=== PATIENT | male | born 1955 | race Caucasian/White ===

== ENCOUNTER 2021-03-26 07:37 | Outpatient (CLI) | payer MEDICARE, OTHER, SELFPAY ==
--- NOTE | ~2021-03-26 | US_ITS ---
EXAMINATION: US aorta [facility] DATE: 03/26/2021 08:24 INDICATION: Abdominal aortic aneurysm screening with risk factors of hypertension, hypercholesterolem ia and prior smoking. TECHNIQUE: Grayscale, color Doppler, and pulsed Doppler images of the aorta and common iliac arteries were obtained. COMPARISON: None. FINDINGS: The proximal aorta measures 2.5 cm. The mid aorta measures 2.3 x 2.1 cm. The distal aorta measures 2. 1 x 1.9 cm. The right common iliac artery measures 1.1 cm. The left common iliac artery measures 1.3 cm. IMPRESSION: 1. Normal caliber abdominal aorta. Reviewed, dictated and finalized at location A.
== END 2021-03-26 07:38 | disposition home or self-care (01) ==
PROVIDERS: PCP Internal Medicine; Visit Provider Clinical Nurse Specialist
DX: Z13.6 Encounter for screening for cardiovascular disorders (principal)
CPT/HCPCS: 76706

== ENCOUNTER 2021-04-19 11:00 | Outpatient (RCR) | payer MEDICARE, OTHER, SELFPAY ==
--- NOTE | 2021-02-01 14:32 | PTOPEVAL ---
Thank you for referring Shawn Thakur to [facility].? The patient is scheduled to be seen for therapy? 1 x/week for 6 weeks. Please review, sign, date and return this plan of care CINTHIA. I agree with and certify that the following plan of care is medically necessary. Referring Physician Date Attending Provider: Milton Woo DO Problem Diagnosis shoulder pain Onset February 2020 Additional Evaluation Detail Send 06/19 by Orthopedic doctor- Dr. Cotton-- nothing torn. no injection Subjective Information Reports pain with lifting left Query Text:As Reported By Patient/ shoulder in int.rot position. Family Only slight discomfort with reaching behind back. He his shoulder started hurting when he was performing more push-up and core exercises. He has decreased his fitness routine and cardio activities to walking and chores. The pain will wake him at night if sleeping on left shoulder. He tends to favor the left UE with lifting task. Pain Assessment Timing of Pain Assessment Timing of Pain Assessment Assessment Pain Scale Pain Scale Used Numeric (1 - 10) Self Report Pain Assessment Left Shoulder(s) Reported Pain Level 3 Pain Description Aching Lowest Pain Intensity 0 Greatest Pain Intensity 3 Pain Aggravating Factors Exercise/Activity,Lifting, Prolonged Position Pain Behaviors None Pain Score Pain Score 3: Self Report Interventions Used Interventions Used By Clinicians Education,Exercise Upper Extremity Range of Motion Scapular/ Shoulder Range of Motion Right Shoulder Flexion - Active 170 Shoulder Extension - Active 60 Shoulder Abduction - Active 175 Shoulder Medial Rotation - Active T10 Query Text:Reach Behind the Back Shoulder Lateral Rotation - Active T2 Query Text:Reach Behind the Head Left Shoulder Flexion - Active 170 Shoulder Extension - Active 60 Shoulder Abduction - Active 175 Shoulder Lateral Rotation - Active T6 Query Text:Reach Behind the Head Scapular/Shoulder Range of Motion T2 Comments Upper Extremity Muscle Strength Testing General Upper Extremity Strength Gross Upper Extremity Strength Comments 5/5 ciara shoulder motion except ciara shoulder flex 4+/5, no pain with testing
--- NOTE | 2021-03-08 14:39 | PTOPEVAL ---
Thank you for referring Shawn Thakur to [facility].? The patient is scheduled to be seen for therapy? 1 visit every other week. Please review, sign, date and return this plan of care CINTHIA. I agree with and certify that the following plan of care is medically necessary. Referring Physician Date Attending Provider: Milton Woo, DO Physical Therapy Progress Note Diagnosis shoulder pain Onset February 2020 Additional Evaluation Detail Send 06/19 by Orthopedic doctor- Dr. Cotton-- nothing torn. no injection Subjective Information Reports the pain was better, Query Text:As Reported By Patient/ but he tweeked it yesterday. Family He will at times have no pain . Overhead motion cont to be painful. Pain with pushing motion from the ground level. Denies pain or problems with reaching behind his back. The pain cont to wake him at night. Pain Assessment Self Report Pain Assessment Left Shoulder(s) Reported Pain Level 0 Pain Description Sharp Pain Frequency Chronic,Intermittent Lowest Pain Intensity 0 Greatest Pain Intensity 3 Pain Aggravating Factors Exercise/Activity,Lifting Upper Extremity Range of Motion Scapular/ Shoulder Range of Motion Right Shoulder Flexion - Active 170 Shoulder Extension - Active 60 Shoulder Abduction - Active 175 Shoulder Medial Rotation - Active T10:Reach Behind the Back Shoulder Lateral Rotation - Active T2:Reach Behind the Head Left Shoulder Flexion - Active 170 Shoulder Extension - Active 60 Shoulder Abduction - Active 175 Shoulder Lateral Rotation - Active T6:Reach Behind the Head Scapular/Shoulder Range of Motion T2 Comments Upper Extremity Muscle Strength Testing General Upper Extremity Strength Gross Upper Extremity Strength Comments 5/5 ciara shoulder motion, no pain with testing ciara middle trap: 3/5 ciara lower trap 2+/5 serratus ant: 3-/5 Muscle Length Testing Muscle Length Testing Pectoralis Major- Sternal Fibers Muscle (R) Mild Tightness,(L) Mild Length Tightness Pectoralis Major- Clavicular Fibers (R) Moderate Tightness,(L) Muscle Length Moderate Tightness Pectoralis Minor Muscle Length (R) Severe Tightness,(L) Severe Tightness Palpation Assessment Palpation Palpation tenderness of left bicep tendon at bicepital groove.
--- NOTE | 2021-04-19 11:43 | PTOPEVAL ---
Physical Therapy Progress Note/Discharge Note Thank you for referring Shawn Thakur to [facility] Shawn has attended 8 therapy visits from 02/01/21 - 04/19/21 to address left shoulder limitations. He demonstrates improved shoulder motion without pain, improved UE strength and ability to return to normal activities. He has achieved his therapy goals at this time. Will DC skilled therapy services at this time. Please review, sign, date and return this discharge summary CINTHIA. I agree with and certify that the following plan of care is medically necessary. Referring Physician Date Attending Provider: Milton Woo DO Problem Diagnosis shoulder pain Onset February 2020 Additional Evaluation Detail Send 06/19 by Orthopedic doctor. nothing torn. no injection Subjective Information Reports the pain was better, Query Text:As Reported By Patient/ with only little twinges with Family certain movement. States the overhead motion cont to be slightly painful at time. Denies any pain with pushing motion from the ground level. Denies pain or problems with reaching behind his back. Denies pain with sleeping. Pain Assessment Timing of Pain Assessment Timing of Pain Assessment Pre-Treatment Pain Scale Pain Scale Used Numeric (1 - 10) Self Report Pain Assessment Left Shoulder(s) Reported Pain Level 0 Lowest Pain Intensity 0 Greatest Pain Intensity 1 Pain Score Pain Score 0: Self Report Upper Extremity Range of Motion Scapular/ Shoulder Range of Motion Left Shoulder Flexion - Active 180 Shoulder Extension - Active 60 Shoulder Abduction - Active 180 Shoulder Medial Rotation - Active T7:Reach Behind the Back Shoulder Lateral Rotation - Active T6:Reach Behind the Head Scapular/Shoulder Range of Motion improved GH glide and Comments scapulothoracic movement Upper Extremity Muscle Strength Testing General Upper Extremity Strength Gross Upper Extremity Strength Comments 5/5 ciara shoulder motion, no pain with testing ciara middle trap: 3+/5 ciara lower trap 3-/5 serratus ant: 3+/5 PT Clinical Summary Pt referred to therapy due to chronic left shoulder pain for the past year. He has attended 8 therapy visits from 02/01/21 to 04/19/21. He denies any pain or limitations with daily task,
== END 2021-04-24 11:22 | disposition home or self-care (01) ==
LOC: ANHPT 11:00
PROVIDERS: PCP Internal Medicine; Visit Provider Internal Medicine
DX: M25.512 Pain in left shoulder (principal)
CPT/HCPCS: 97110; 97140; 97161

== ENCOUNTER 2023-01-22 08:32 | Outpatient (CLI) | payer MEDICARE, OTHER, SELFPAY ==
[2023-01-22 19:21] LABS: Basophils Percent Auto 0.6 % (0.2-1.2); Eosinophils Absolute Auto 0.1 K/mm3 (0-0.3); Eosinophils Percent Auto 2.3 % (0-4.4); Hematocrit 42.3 % (42.0-52.0); Hemoglobin 14.3 g/dL (14.0-18.0); Immature Granulocyte Absolute 0.04 K/mm3 (0.00-0.031); Immature Granulocyte Percent A 0.8 % (0-0.5); Lymphocytes Absolute Auto 1.55 K/mm3 (0.9-3.2); Lymphocytes Percent Auto 30.2 % (18.3-44.2); Mean Corpuscular HGB Conc 33.8 g/dl (32-36); Mean Corpuscular Hemoglobin 33.4 pg (26-34); Mean Corpuscular Volume 98.8 fl (80-100); Mean Platelet Volume 8.6 fl (7.4-10.4); Monocytes Absolute Auto 0.7 K/mm3 (0.1-0.6); Monocytes Percent Auto 13.8 % (2.6-8.5); Neutrophils Absolute Auto 2.7 K/mm3 (1.3-6.7); Neutrophils Percent Auto 52.3 % (45.5-73.1); Platelet Count Result 271 k/mm3 (150-375); Red Blood Count 4.28 M/mm3 (4.6-6.20); Red Cell Distribution Width 12.1 % (11.5-14.5); White Blood Count 5.1 K/mm3 (4.5-10.0)
[2023-01-22 19:41] LABS: Alanine Aminotransferase 27 U/L (6-50); Albumin Level 4.4 g/dL (3.5-5.1); Alkaline Phosphatase 51 U/L (38-126); Anion Gap 3 mmol/L (8-16); Aspartate Amino Transferase 33 U/L (17-59); Blood Urea Nitrogen 8 mg/dL (9-20); Calcium 8.6 mg/dL (8.4-10.2); Carbon Dioxide 33 mmol/L (22-30); Chloride 97 mmol/L (98-107); Cholesterol 184 mg/dL (0-200); Estimated Glomerular Filt Rate > 60; Glucose 87 mg/dL (65-110); HDL Direct 64 mg/dL; Potassium 4.5 mmol/L (3.4-5.0); Sodium 133 mmol/L (137-145); Triglycerides 88 mg/dL (<150)
[2023-01-22 19:55] LABS: LDL Cholesterol Direct 101 mg/dL
[2023-01-22 20:00] LABS: Vitamin D 25 Hydroxy 60.1 ng/mL
== END 2023-01-22 08:33 | disposition home or self-care (01) ==
LOC: ANHGOSHLAB 08:34
PROVIDERS: PCP Internal Medicine; Visit Provider Nurse Practitioner
DX: E78.00 Pure hypercholesterolemia, unspecified (principal); G47.30 Sleep apnea, unspecified; I10 Essential (primary) hypertension; Z12.5 Encounter for screening for malignant neoplasm of prostate
CPT/HCPCS: 36415; 80053; 80061; 82306; 84153; 85025; G0103